=== PATIENT | male | born 1990 | race Caucasian/White ===

== ENCOUNTER 2016-07-20 04:39 | Emergency (ER) | payer OTHER ==
[~2016-07-20] VITALS: Ht 180.3 cm; Wt 103.5 kg
[~2016-07-20 04:39] MED LIST: ONDA4TAB35 PO
[2016-07-20 04:43] VITALS: Ht 180.3 cm; Wt 103.5 kg
[2016-07-20] MEDS ORDERED: CEPH-443 PO (04:51)
[2016-07-20] MEDS ORDERED: HYDR-3011 PO (04:51)
--- NOTE | 2016-07-20 05:19 | ERD ---
ER Documentation Chief Complaint Date/Time DATE: 07/20/16 TIME: 05:17 Chief Complaint bug bite on his right arm HPI 25-year-old male presents to emergency department for complaints of insect bite on the right arm, complaining of itching and swelling of the affected area. Complains of pain, sharp pain, 6/10 scale, is worse upon touching the area. Patient denies any discharge coming from the area. Patient did not take any medications to help with symptoms. Patient denies any numbness or tingling. ROS All systems reviewed and are negative except as per history of present illness. Medications Home Meds Active Scripts Hydroxyzine Hcl* (Hydroxyzine Hcl*) 25 Mg Tablet, 25 MG PO Q8H Y for ITCHING, # 30 TAB Prov:ELIAN MARTIN [employer] 07/20/16 Cephalexin* (Keflex*) 500 Mg Capsule, 500 MG PO QID for 10 Days, CAP Prov:ELIAN MARTIN NP 07/20/16 Ondansetron Hcl* (Zofran* ODT) 4 mg -ODT Tab.disper, 4 MG PO Q6 Y for NAUSEA AND /OR VOMITING, #10 TAB Prov:MIGUEL GHOTRA NP 07/08/15 Allergies Allergies: Coded Allergies: No Known Allergy (Unverified , 07/08/15) PMhx/Soc Medical and Surgical Hx: pt denies Medical Hx, pt denies Surgical Hx History of Surgery: No Anesthesia Reaction: No Hx Neurological Disorder: No Hx Respiratory Disorders: No Hx Cardiac Disorders: No Hx Psychiatric Problems: No Hx Miscellaneous Medical Probl: No Hx Alcohol Use: No Hx Substance Use: No Hx Tobacco Use: No Smoking Status: Never smoker FmHx Family History: No coronary disease, No diabetes, No other Physical Exam Vitals Vital Signs Date Time Temp Pulse Resp B/P Pulse Ox O2 Delivery O2 Flow Rate FiO2 07/20/16 04:43 98.4 83 20 125/71 98 Physical Exam GENERAL: The patient is well developed and appropriate for usual state of health, in no apparent distress. CHEST: Clear to auscultation bilaterally. There are no rales, wheezes or rhonchi. HEART: Regular rate and rhythm. No murmurs, clicks, rubs or gallops. No S3 or S4. ABDOMEN: Soft, nontender and nondistended. Good bowel sounds. No rebound or guarding. No gross peritonitis. No gross organomegaly or masses. No Ma sign or McBurney point tenderness. BACK: No midline or flank tenderness. EXTREMITIES: Equal pulses bilaterally. There is no peripheral clubbing, cyanosis or edema. No focal swelling or erythema. Full range of motion. Grossly neurovascularly intact. NEURO: Alert and oriented. Cranial nerves 2-12 intact. Motor strength in all 4 extremities with 5/5 strength. Sensation grossly intact. Normal speech and gait. SKIN: Noted erythematous maculopapular rash with some induration noted on the right arm. Mild tenderness on palpation. No ecchymosis noted. There is no apparent ecchymosis or petechia. The skin is warm and dry. HEMATOLOGIC AND LYMPHATIC: There is no evidence of excessive bruising or lymphedema. No gross cervical, axillary, or inguinal lymphadenopathy. Procedures/MDM Medical decision making: Patient symptoms like is consistent with infected insect bites. No symptoms of any abscess. No symptoms of any neurovascular compromise. No symptoms of any contagious rash at this time. Patient was given for hydroxyzine, Keflex, is advised to follow with primary care doctor in 2-3 days for reevaluation of symptoms. Patient was advised to return to emergency department for worsening symptoms. Departure Diagnosis: Primary Impression: Infected insect bite Condition: Stable Patient Instructions: Insect Sting/Bite, ELIAN Redmond NP July 20, 2016 05:19
== END 2016-07-20 05:01 | disposition home or self-care (01) ==
LOC: FTE 04:39
DX: S40.861A Insect bite (nonvenomous) of right upper arm, initial encounter (principal); W57.XXXA Bitten or stung by nonvenomous insect and other nonvenomous arthropods, initial encounter; Y92.9 Unspecified place or not applicable
CPT/HCPCS: 99284